=== PATIENT | female | born 1975 | race Caucasian/White ===

== ENCOUNTER 2020-09-16 07:11 | Outpatient (CLI) | payer BC, SELFPAY ==
--- NOTE | ~2020-09-16 | CT_ITS ---
EXAMINATION: CT brain wo con DATE: 09/16/2020 08:05 INDICATION: Headache TECHNIQUE: Computed tomography (CT) of the head was performed without intravenous contrast. Sagittal and coronal reconstructions were performed. The mA was adjusted according to patient size. Iterative reconstruction technique was employed. The dose-length product was 605.33 mGy-cm. COMPARISON: None FINDINGS: No acute intracranial hemorrhage, acute infarction or abnormal extra axial fluid collection. Ventricl es are normal and symmetric. No mass/mass effect. The orbits, paranasal sinuses and mastoid air cells are normal. IMPRESSION: 1. Normal head CT. Reviewed, dictated and finalized at location A. IMPRESSION: 1. Normal head CT.
[2020-09-16 08:57] LABS: Hematocrit 40.9 % (37.0-47.0); Hemoglobin 13.2 g/dL (12.0-15.0); Mean Corpuscular HGB Conc 32.3 g/dl (32-36); Mean Corpuscular Hemoglobin 30.3 pg (26-34); Mean Corpuscular Volume 93.8 fl (80-100); Mean Platelet Volume 10.8 fl (7.4-10.4); Platelet Count Result 252 k/mm3 (150-375); Red Blood Count 4.36 M/mm3 (4.2-5.4); Red Cell Distribution Width 12.9 % (11.5-14.5); White Blood Count 6.3 K/mm3 (4.5-10.0)
[2020-09-16 09:05] LABS: Alanine Aminotransferase 13 U/L (4-35); Albumin Level 4.2 g/dL (3.5-5.1); Alkaline Phosphatase 59 U/L (38-126); Anion Gap 8 mmol/L (8-16); Aspartate Amino Transferase 25 U/L (14-36); Bilirubin,Total 0.3 mg/dL (0.2-1.3); Blood Urea Nitrogen 16 mg/dL (7-17); Calcium 9.4 mg/dL (8.4-10.2); Carbon Dioxide 26 mmol/L (22-30); Chloride 106 mmol/L (98-107); Estimated Glomerular Filt Rate > 60; Glucose 64 mg/dL (65-105); Potassium 4.1 mmol/L (3.4-5.0); Sodium 140 mmol/L (137-145)
[2020-09-16 09:36] LABS: Thyroid Stimulating Hormone 0.995 uIU/mL (0.465-4.680)
[2020-09-16 10:13] LABS: Folic Acid > 20.0 ng/mL (2.76->20)
[2020-09-18 11:34] LABS: Red Blood Cell Folate 623 ng/mL RBC (>280)
== END 2020-09-16 07:12 | disposition home or self-care (01) ==
PROVIDERS: PCP Family Medicine
DX: R50.9 Fever, unspecified (principal)
CPT/HCPCS: 36415; 70450; 80053; 82607; 82746; 82747; 84443; 85027

== ENCOUNTER 2020-09-30 07:06 | Outpatient (CLI) | payer BC, SELFPAY ==
[2020-09-30 07:55] LABS: Cholesterol 214 mg/dL (0-200); HDL Direct 63 mg/dL; Triglycerides 126 mg/dL (<150)
[2020-09-30 08:07] LABS: LDL Cholesterol Direct 109 mg/dL
== END 2020-09-30 07:07 | disposition home or self-care (01) ==
PROVIDERS: PCP Family Medicine; Visit Provider Physician Assistant
DX: Z13.220 Encounter for screening for lipoid disorders (principal)
CPT/HCPCS: 36415; 80061

== ENCOUNTER → 2020-10-21 16:09 | Outpatient (CLI) | payer BC, SELFPAY ==
--- NOTE | ~2020-10-21 | MM_ITS ---
EXAMINATION: MM screening theo BI w kunal HISTORY: Screening TECHNIQUE: Craniocaudal and mediolateral oblique 3-D tomosynthesis images were obtained and synthetic 2-D images were generated. CAD analysis was submitted and interpreted. COMPARISON: 11/11/2015 BREAST PARENCHYMAL COMPOSITION: There are scattered areas of fibroglandular density. FINDINGS: There is no evidence of suspicious mass, calcification, or architectural distortion to sugg est malignancy in either breast. There has been no suspicious interval change. IMPRESSION: 1. No mammographic evidence of malignancy. 2. Recommend routine screening mammography in one year. BI-RADS Category 1: Negative Reviewed, dictated and finalized at location A.
== END ==
PROVIDERS: PCP Family Medicine; Visit Provider Obstetrics & Gynecology
DX: Z12.31 Encounter for screening mammogram for malignant neoplasm of breast (principal)
CPT/HCPCS: 77063; 77067

== ENCOUNTER 2021-08-14 11:11 | Outpatient (CLI) | payer BC, SELFPAY ==
[2021-08-14 11:47] LABS: Basophils Percent Auto 0.4 % (0.2-1.2); Eosinophils Absolute Auto 0.1 K/mm3 (0-0.3); Eosinophils Percent Auto 1.8 % (0-4.4); Hematocrit 39.3 % (37.0-47.0); Hemoglobin 13.8 g/dL (12.0-15.0); Immature Granulocyte Absolute 0.02 K/mm3 (0.00-0.031); Immature Granulocyte Percent A 0.4 % (0-0.5); Lymphocytes Absolute Auto 1.23 K/mm3 (0.9-3.2); Lymphocytes Percent Auto 24.1 % (18.3-44.2); Mean Corpuscular HGB Conc 35.1 g/dl (32-36); Mean Corpuscular Hemoglobin 30.6 pg (26-34); Mean Corpuscular Volume 87.1 fl (80-100); Mean Platelet Volume 10.1 fl (7.4-10.4); Monocytes Absolute Auto 0.4 K/mm3 (0.1-0.6); Monocytes Percent Auto 8.6 % (2.6-8.5); Neutrophils Absolute Auto 3.3 K/mm3 (1.3-6.7); Neutrophils Percent Auto 64.7 % (45.5-73.1); Platelet Count Result 235 k/mm3 (150-375); Red Blood Count 4.51 M/mm3 (4.2-5.4); Red Cell Distribution Width 12.5 % (11.5-14.5); White Blood Count 5.1 K/mm3 (4.5-10.0)
[2021-08-14 14:20] LABS: Alanine Aminotransferase 45 U/L (6-35); Albumin Level 4.8 g/dL (3.5-5.1); Alkaline Phosphatase 80 U/L (38-126); Anion Gap 11 mmol/L (8-16); Aspartate Amino Transferase 41 U/L (14-36); Bilirubin,Total 0.3 mg/dL (0.2-1.3); Blood Urea Nitrogen 13 mg/dL (7-17); Calcium 9.9 mg/dL (8.4-10.2); Carbon Dioxide 20 mmol/L (22-30); Chloride 111 mmol/L (98-107); Cholesterol 233 mg/dL (0-200); Estimated Glomerular Filt Rate > 60; Glucose 101 mg/dL (65-110); HDL Direct 65 mg/dL; Potassium 4.5 mmol/L (3.4-5.0); Sodium 142 mmol/L (137-145); Triglycerides 244 mg/dL (<150)
[2021-08-14 14:37] LABS: LDL Cholesterol Direct 110 mg/dL
== END 2021-08-14 11:12 | disposition home or self-care (01) ==
LOC: ANHLAB 11:12
PROVIDERS: PCP Family Medicine; Visit Provider Family Medicine
DX: F31.9 Bipolar disorder, unspecified (principal); Z13.220 Encounter for screening for lipoid disorders
CPT/HCPCS: 36415; 80053; 80061; 82607; 84443; 85025

== ENCOUNTER → 2022-09-17 12:46 | Outpatient (CLI) | payer BC, SELFPAY ==
--- NOTE | ~2022-09-17 | CT_ITS ---
EXAMINATION: CT sinus wo con DATE: 09/17/2022 13:02 INDICATION: Chronic sinusitis TECHNIQUE: Computed tomography (CT) of the paranasal sinuses was performed without intravenous contra st. The dose-length product was 297.70 mGy-cm. Automated exposure control and iterative reconstructio n technique were employed. COMPARISON: CT dated 09/16/2020 FINDINGS: There are surgical changes consistent with surgical resection of the ostiomeatal units. No significant mucosal thickening of the sinuses. No air-fluid levels. No mucoperiosteal reaction. No na broderick septal deviation. Mastoids are pneumatized. IMPRESSION: 1. No significant sinus disease. Reviewed, dictated and finalized at location L.
== END ==
PROVIDERS: PCP Family Medicine; Visit Provider Otolaryngology
DX: J31.1 Chronic nasopharyngitis (principal)
CPT/HCPCS: 70486

== ENCOUNTER 2023-01-04 16:13 | Outpatient (CLI) | payer BC, SELFPAY ==
[2023-01-04 16:37] LABS: Basophils Percent Auto 0.5 % (0.2-1.2); Eosinophils Absolute Auto 0.2 K/mm3 (0-0.3); Eosinophils Percent Auto 2.7 % (0-4.4); Hematocrit 39.1 % (37.0-47.0); Hemoglobin 12.8 g/dL (12.0-15.0); Immature Granulocyte Absolute 0.02 K/mm3 (0.00-0.031); Immature Granulocyte Percent A 0.2 % (0-0.5); Lymphocytes Absolute Auto 2.84 K/mm3 (0.9-3.2); Lymphocytes Percent Auto 33.1 % (18.3-44.2); Mean Corpuscular HGB Conc 32.7 g/dl (32-36); Mean Corpuscular Hemoglobin 30.8 pg (26-34); Mean Platelet Volume 10.6 fl (7.4-10.4); Monocytes Absolute Auto 0.6 K/mm3 (0.1-0.6); Monocytes Percent Auto 6.9 % (2.6-8.5); Neutrophils Absolute Auto 4.9 K/mm3 (1.3-6.7); Neutrophils Percent Auto 56.6 % (45.5-73.1); Platelet Count Result 252 k/mm3 (150-375); Red Blood Count 4.16 M/mm3 (4.2-5.4); Red Cell Distribution Width 11.9 % (11.5-14.5); White Blood Count 8.6 K/mm3 (4.5-10.0)
[2023-01-04 16:47] LABS: Alanine Aminotransferase 20 U/L (6-35); Albumin Level 4.6 g/dL (3.5-5.1); Alkaline Phosphatase 68 U/L (38-126); Amylase 111 U/L (30-110); Anion Gap 8 mmol/L (8-16); Aspartate Amino Transferase 26 U/L (14-36); Bilirubin,Total 0.4 mg/dL (0.2-1.3); Blood Urea Nitrogen 11 mg/dL (7-17); Calcium 9.7 mg/dL (8.4-10.2); Carbon Dioxide 22 mmol/L (22-30); Chloride 106 mmol/L (98-107); Estimated Glomerular Filt Rate 59; Glucose 99 mg/dL (65-110); Lipase 274 U/L (23-300); Potassium 4.1 mmol/L (3.4-5.0); Sodium 136 mmol/L (137-145)
[2023-01-04 16:57] LABS: Appearance Urine Clear (Clear); Bacteria Urine 1+ /hpf; Bilirubin Urine Negative (Negative); Blood Urine Negative (Negative); Color Urine Yellow (Yellow); Glucose Urine UA Negative (Negative); Ketones Urine Trace mg/dL (Negative); Leukocyte Esterase Ur 1+ LEU/UL (Negative); Nitrate Urine Negative (Negative); Non Pathogenic Casts 0-2; Protein Urine Negative (Negative); Specific Grav Ur 1.023 (1.001-1.035); Squamous Epithelial Cell Urine Few /hpf (Few); pH Urine 7.5 (5.0-9.0)
[2023-01-04 16:59] LABS: Add Urine Microscopic? YES
[2023-01-04 18:37] LABS: Free T4 Free Thyroxine Reflex 1.06 ng/dL (0.78-2.19)
[2023-01-04 19:19] LABS: Total Triiodothyronine (T3) 1.14 NG/ML (0.97-1.69)
== END 2023-01-04 16:14 | disposition home or self-care (01) ==
LOC: ANHLAB 16:15
PROVIDERS: PCP Family Medicine; Visit Provider Physician Assistant
DX: R11.0 Nausea (principal); R53.1 Weakness
CPT/HCPCS: 36415; 80053; 81001; 82150; 83690; 84439; 84443; 84480; 85025; 87086

== ENCOUNTER 2023-07-19 16:06 | Inpatient (IN) | payer BC, SELFPAY ==
[2023-07-19] VITALS (9 sets, daily range): BP systolic 90–105; BP diastolic 48–71; PULSE 60–67; RESP 13–18; TEMP 36.4–36.8; O2SAT 96–100; BMI 25.2
--- NOTE | ~2023-07-19 | XR_ITS ---
EXAMINATION: XR chest 1V portable 07/19/2023 16:38 INDICATION: Overdose PROCEDURE: AP portable chest COMPARISON: No prior studies for comparison. FINDINGS: The lungs are clear. The cardiomediastinal silhouette is within normal limits. There are no pleural effusions. There is no pneumothorax suspected. IMPRESSION: 1: NO ACUTE CARDIOPULMONARY DISEASE. Reviewed, dictated and finalized at location B.
--- NOTE | ~2023-07-19 | CT_ITS ---
Non-contrast Head CT History: Encephalopathy Technique: Axial non-contrast imaging of the brain was performed. Dose reduction technique was used on this scan by utilizing automated exposure control and iterative reconstruction technique. The dose -length product (DLP) was 605.33 mGy-cm. Findings: There is no evidence of intracranial hemorrhage, mass lesion, or acute infarct. Brain par enchyma appears normal. The ventricles and subarachnoid spaces are normal in size. The calvarium ap pears normal. The visualized paranasal sinuses and mastoid air cells are clear. Impression: No significant abnormality seen. Reviewed, dictated and finalized at location . Impression: No significant abnormality seen.
[2023-07-19] MEDS: SODIUM CHLORIDE 0.9% IV 1,000 ML 999 ML IV CONT (16:43)
[2023-07-19 17:13] LABS: Basophils Percent Auto 0.5 % (0.2-1.2); Eosinophils Absolute Auto 0.2 K/mm3 (0-0.3); Eosinophils Percent Auto 2.7 % (0-4.4); Hematocrit 39.7 % (37.0-47.0); Hemoglobin 13.1 g/dL (12.0-15.0); Immature Granulocyte Absolute 0.03 K/mm3 (0.00-0.031); Immature Granulocyte Percent A 0.4 % (0-0.5); Lymphocytes Absolute Auto 1.91 K/mm3 (0.9-3.2); Lymphocytes Percent Auto 24.5 % (18.3-44.2); Mean Corpuscular Hemoglobin 30.5 pg (26-34); Mean Corpuscular Volume 92.3 fl (80-100); Mean Platelet Volume 10.8 fl (7.4-10.4); Monocytes Absolute Auto 0.7 K/mm3 (0.1-0.6); Monocytes Percent Auto 8.9 % (2.6-8.5); Neutrophils Absolute Auto 4.9 K/mm3 (1.3-6.7); Platelet Count Result 287 k/mm3 (150-375); Red Cell Distribution Width 14.4 % (11.5-14.5); White Blood Count 7.8 K/mm3 (4.5-10.0)
--- NOTE | 2023-07-19 17:19 | ED.OVERDOSE ---
HPI - Overdose General Chief Complaint: Overdose Stated Complaint: overdose Time Seen by Provider: 07/19/23 16:20 History of Present Illness HPI Narrative: Pt said he came home and found pt not acting right. Pt drwosy. found empty bottle of clonazepam 1 mg. Pt said she flushed it down the toilet. Rx for 90 filled a month ago. Pt denies SI. Related Data Home Medications Medication Instructions Recorded Confirmed escitalopram oxalate 20 mg tablet 20 mg PO DAILY 07/08/22 07/19/23 (Lexapro) lithium carbonate 300 mg capsule 300 mg PO .COMPLEX 07/08/22 07/19/23 bupropion HCl 300 mg 24 hr tablet, 300 mg PO DAILY 07/19/23 07/19/23 extended release Allergies Allergy/AdvReac Type Severity Reaction Status Date / Time hydrocodone Allergy Unknown unknown Verified 01/04/23 15:37 Penicillins Allergy Unknown unknown Verified 01/04/23 15:37 semaglutide [From Ozempic] AdvReac Severe Nausea and Verified 01/04/23 15:37 Vomiting Review of Systems Review of Systems: All systems reviewed & are unremarkable except as noted in HPI and below PMFSH Past Medical History Medical History Bipolar 1 disorder Generalized anxiety disorder Major depressive disorder Surgical History Surgical History History of endometrial ablation History of hernia repair History of sinus surgery History of tonsillectomy Family History Family History Father Hypertension Sibling Attention deficit disorder Mother Family history of malignant neoplasm of uterus Grandparent Heart disease Anxiety Depression Family history of coronary artery disease Hypertension Family history of elevated blood lipids Pulmonary embolism Other Diabetes mellitus Social History Social History Social History: Smoking status: Never smoker Second hand tobacco smoke exposure: No Smoking end date: 04/05/05 Alcohol intake: former Substance use: never Substance use type: prescription drug Living arrangements: with family Occupation/Education: occupation Gender identity (if verbalized by the patient): Female Sexual Orientation (if Verbalized by the Patient): Straight or Heterosexual Spiritual care concerns: No Exam Const: General: healthy appearing Nutritional Appearance: well nourished Orientation/consciousness: patient oriented x3 Limitations: no limitations Resp: Effort & Inspection: normal respiratory effort Auscultation: clear to auscultation bilaterally Cardio: Rate: regular rate Rhythm: regular rhythm GI: GI Palp: Yes Soft to palpation Auscultation: normal bowel sounds Skin: General skin exam: normal color Rashes: no rashes Wounds: no wounds Neuro: General: patient oriented x3, moves all extremities, no meningeal signs, no focal motor deficits and CN's II-XI intact bilaterally Speech: normal speech Extrem: General: normal to inspection and no clubbing, cyanosis or edema Psych: Mental Status: mental status grossly normal Affect: normal affect Attitude: cooperative Course Vital Signs Vital signs: Vital Signs Temperature 97.6 F 07/19/23 16:16 Pulse Rate 63 07/19/23 16:16 Respiratory Rate 14 07/19/23 16:16 Blood Pressure 104/68 07/19/23 16:16 Pulse Oximetry 100 07/19/23 16:16 Oxygen Delivery Room Air 07/19/23 16:16 Temperature 97.6 F 07/19/23 16:16 Pulse Rate 62 07/19/23 20:31 Respiratory Rate 13 07/19/23 20:31 Blood Pressure 103/68 07/19/23 20:31 Pulse Oximetry 98 07/19/23 20:31 Oxygen Delivery Room Air 07/19/23 16:16 MDM - Overdose MDM Narrative Medical decision making narrative: per pt has had adjustments on psych meds lately and has been very out of it even before today. Pt is stable in
[2023-07-19 17:28] LABS: Alanine Aminotransferase 15 U/L (6-35); Alkaline Phosphatase 60 U/L (38-126); Anion Gap 6 mmol/L (4-12); Aspartate Amino Transferase 26 U/L (14-36); Bilirubin,Total 0.6 mg/dL (0.2-1.3); Blood Urea Nitrogen 8 mg/dL (7-17); Calcium 9.2 mg/dL (8.4-10.2); Carbon Dioxide 20 mmol/L (22-30); Chloride 111 mmol/L (98-107); Estimated CRCL calculation 56 ml/min; Estimated Glomerular Filt Rate > 60; Glucose 85 mg/dL (65-110); Potassium 3.8 mmol/L (3.4-5.0); Sodium 137 mmol/L (137-145)
[2023-07-19 17:31] LABS: Acetaminophen < 10 ug/mL (10-30); Ethanol < 10 mg/dL (<10); Salicylate < 1.0 mg/dL (2-20)
[2023-07-19 17:46] LABS: Appearance Urine Clear (Clear); Bilirubin Urine Negative (Negative); Blood Urine Negative (Negative); Color Urine Dark Yellow (Yellow); Glucose Urine UA Negative (Negative); Ketones Urine Trace mg/dL (Negative); Leukocyte Esterase Ur Negative LEU/UL (Negative); Nitrate Urine Negative (Negative); Protein Urine Negative (Negative); Specific Grav Ur 1.018 (1.001-1.035); pH Urine 6.5 (5.0-9.0)
[2023-07-19 17:53] LABS: Add Urine Microscopic? NO
--- NOTE | 2023-07-19 18:13 | PC.NURSE ---
Spoke with poison control and spoke with TRISTAN Curiel. She states the only thing to watch out for is her respiratory status. will inform MD
[2023-07-19 18:14] LABS: Amphetamine Screen Urine Negative (Negative); Barbiturate Screen Urine Negative (Negative); Benzodiazepines Screen Urine Negative (Negative); Cannabinoid Screen Urine Negative (Negative); Cocaine Screen Urine Negative (Negative); Methadone Screen Urine Negative (Negative); Opiate Screen Urine Negative (Negative); Phencyclidine Screen Urine Negative (Negative)
[2023-07-19 19:01] LABS: Ammonia < 9 umol/L (9-30)
[2023-07-19] MEDS: LACTATED RINGERS 1,000 ML 125 ML IV CONT (21:00)
[2023-07-20] VITALS (9 sets, daily range): BP systolic 92–124; BP diastolic 66–99; PULSE 61–82; RESP 14–22; TEMP 36.2–37.1; O2SAT 95–100
--- NOTE | 2023-07-20 04:03 | ADMGEN ---
This patient, Edwin Loya, was admitted to Intensive Care Unit-9. Patient/family oriented to hospital policies and general routines including ID bracelet, bed and alarms, visiting hours, pain management, procedures, bathroom and other care routines, personal items, smoking policy, room service/diet, and visiting hours. Information on how to activate the Rapid Response Team has been discussed. Patient/Family are encouraged to report perceived risks to care and to ask questions if they do not understand what they are told or what they should do.
[2023-07-20] MEDS: LACTATED RINGERS 1,000 ML 125 ML IV CONT (05:00)
[2023-07-20 07:16] LABS: MRSA (PCR) NOT DETECTED (NOT DETECTE)
[2023-07-20] MEDS: ENOXAPARIN 40 MG/0.4 ML SYRINGE SUB-Q (08:15)
[2023-07-20 08:16] LABS: Basophils Percent Auto 0.5 % (0.2-1.2); Eosinophils Absolute Auto 0.2 K/mm3 (0-0.3); Eosinophils Percent Auto 2.2 % (0-4.4); Hematocrit 40.6 % (37.0-47.0); Hemoglobin 12.9 g/dL (12.0-15.0); Immature Granulocyte Absolute 0.02 K/mm3 (0.00-0.031); Immature Granulocyte Percent A 0.3 % (0-0.5); Lymphocytes Absolute Auto 1.96 K/mm3 (0.9-3.2); Lymphocytes Percent Auto 25.7 % (18.3-44.2); Mean Corpuscular HGB Conc 31.8 g/dl (32-36); Mean Corpuscular Volume 94.4 fl (80-100); Mean Platelet Volume 10.7 fl (7.4-10.4); Monocytes Absolute Auto 0.5 K/mm3 (0.1-0.6); Monocytes Percent Auto 6.3 % (2.6-8.5); Platelet Count Result 252 k/mm3 (150-375); Red Cell Distribution Width 14.1 % (11.5-14.5); White Blood Count 7.6 K/mm3 (4.5-10.0)
--- NOTE | 2023-07-20 08:16 | PM.IMHP ---
H&P: HPI History of Present Illness Date/Time: 07/19/232109 Chief Complaint: Suspected overdose Narrative: 39-year-old female with a past medical history of major depressive disorder with psychosis and bipolar disorder who presented from home via EMS due to suspected overdose on clonazepam. The patient's provides all of the history due to patient's change in mental status. Had a states that the patient has a history of depression and psychosis and he reports that he recently found of the she also carried a diagnosis of bipolar disorder. At the beginning of June the patient began having odd hallucinations. Unfortunately the patient's psychiatrist had recently suddenly . The other psychiatrist in the office was unable to take the patient as a full-time patient but was trying to adjust medications. The reports that her multiple medication adjustments in the patient was started on Seroquel. Initially low-dose Seroquel. However the patient's hallucinations were not improving. And Seroquel was increased. With the increase in Seroquel the patient began having side effects with difficulty with coordination, walking, decreased awareness, decreased appetite. 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 After multiple attempts to go to work and patient having difficulty completing tasks the patient had to resign from her position. The patient was even started on benztropine to help cope with side effects without improvement in condition. The patient had worsened to the point that approximately 4 days ago her Seroquel was discontinued altogether. She was continued on her benztropine. Her states that when the E would tele patient to sit down she would stand up in tried to ambulate unassisted. It gotten to the point that he was giving her her meds and then she would get up and go into the other room and accidentally take other doses of meds a few weeks ago. So for the last several weeks he has actually been hiding her medications and administering them under supervision. He reports that today around 09:00 he he gave her a p.r.n. dose of clonazepam. After he had given her the medication he had went to walk the dogs. When he came back she was sitting on the couch in seemed overly tired which is not been unusual during this whole process. He sister back to bed. She slept most the day with intermittent snoring. He works from home and was monitoring her closely. In the afternoon she had not eaten so he went down to the kitchen to get her something to eat. At that time he found a bottle of clonazepam open on the counter. She had evidently found where he had head the medications. She took fiber 6 tablets of clonazepam that was remaining in the bottle. He thinks that she took it between 9 and 9:30 in the morning. The patient had reported to the ER staff that she had put the medications in the toilet. In the past the patient had evidently reported the several years ago that she had thrown away meds and then later admitted to having taken them. So, he is pretty sure that she has taken them. Patient is currently not a good historian. Her reports that she has been intermittently confused. She actually did not answer any questions while I was in the room. The patient denied suicidal ideation to the ER staff. Review of Systems Review of Systems: ROS unobtainable: Yes unobtainable due to mental status [facility] Past Medical History Medical History (Updated 07/20/23 @ 10:53 by Bonny Garcia DO) Bipolar 1 disorder Generalized anxiety disorder Major depressive disorder Overactive bladder Slow transit constipation Surgical History Surgical History History of endometrial ablation History of hernia repair History of sinus surgery History
[2023-07-20 08:52] LABS: Alanine Aminotransferase 14 U/L (6-35); Albumin Level 3.7 g/dL (3.5-5.1); Alkaline Phosphatase 64 U/L (38-126); Anion Gap 3 mmol/L (4-12); Aspartate Amino Transferase 22 U/L (14-36); Bilirubin,Total 0.6 mg/dL (0.2-1.3); Blood Urea Nitrogen 7 mg/dL (7-17); Calcium 9.1 mg/dL (8.4-10.2); Carbon Dioxide 22 mmol/L (22-30); Chloride 112 mmol/L (98-107); Estimated CRCL calculation 53 ml/min; Estimated Glomerular Filt Rate > 60; Glucose 86 mg/dL (65-110); Magnesium 1.9 mg/dL (1.6-2.3); Phosphorus 2.5 mg/dL (2.5-4.5); Potassium 3.8 mmol/L (3.4-5.0); Sodium 137 mmol/L (137-145)
--- NOTE | 2023-07-20 08:59 | WPDCNINT ---
Assessment and Plan Assessment and plan (1) Encephalopathy acute: Code(s): G93.40 - Encephalopathy, unspecified Status: Acute Assessment and Plan: Encephalopathy could be related to drug overdose -Klonopin overdose, likely 6 pills -patient received 1 L IV fluid the ER -will repeat IV fluid bolus this morning -monitor urine output -check lithium levels as patient is on lithium at home -07/19: CT scan of the brain: With no significant abnormality seen -CBC and BMP are within normal limits -monitor mental status (2) Overdose: Code(s): T50.901A - Poisoning by unspecified drugs, medicaments and biological substances, accidental (unintentional), initial encounter Status: Acute Assessment and Plan: Klonopin overdose -urine tox screen was negative -salicylic, acetaminophen and alcohol levels were negative -maintain suicidal precautions -poison Control has been notified (3) Suicidal behavior: Code(s): R45.89 - Other symptoms and signs involving emotional state Status: Acute Assessment and Plan: As above (4) Bipolar 1 disorder: Code(s): F31.9 - Bipolar disorder, unspecified Status: Acute Assessment and Plan: Will hold all psych medication (5) Generalized anxiety disorder: Code(s): F41.1 - Generalized anxiety disorder Status: Acute Assessment and Plan: Will hold all psych medications Plan DVT prophylaxis: Lovenox Stress ulcer prophylaxis: Not indicated Nutrition: NPO Code Status: Full code Critical Care Time Spent: 49 minutes Due to a high probability of clinically significant, life threatening deterioration, the patient required my highest level of preparedness to intervene emergently and I personally spent this critical care time directly and personally managing the patient. This critical care time included obtaining a history; examining the patient; pulse oximetry; ordering and review of studies; arranging urgent treatment with development of a management plan; evaluation of patient's response to treatment; frequent reassessment; and discussions with other providers. It was exclusive of separately billable procedures and treating other patients and teaching time. Please see Assessment and Plan section and the rest of the note for further information on patient assessment and treatment This dictation may have been done utilizing a voice recognition system. Attempts have been made to correct errors. However, there may be uncorrected grammatical, spelling, and recognitions errors present. [employer] Consult Note Consult date: 07/20/23 Reason for consult: Encephalopathy possible drug overdose/accidental drug overdose HPI: Edwin Loya is a 47 year old female with past medical history of major depressive disorder with psychosis bipolar disorder presented the ED via EMS on 07/19/2023 due to suspected overdose of clonazepam. Medical History obtained from the medical records as patient unable to provide history at this time. According the he gave her Klonopin and went out to walk the dogs and when he came she was sitting the, seemed overly tired. Put her back in bed and she slept most of the day with intermittent snoring. When he went down to the kitchen junito found and empty bottle of clonazepam open on the counter. Them roughly 6 pelvis that were remaining in the bottle. In the past the patient had evidently reported the several years ago that she had thrown away meds and then later admitted to having taken them.? So, he is pretty sure that she has taken them.? CBC any CMP are unremarkable, ammonia levels were within normal limits, UA was unremarkable. Urine drug screen was negative, salicylates, acetaminophen and ethyl alcohol were negative. Was given 1 L IV fluids instead transferred to the ICU for further management. Patient is on suicidal precautions in the ICU Patient seen examined the ICU this morning, opens h
[2023-07-21] VITALS: BP 90/73; PULSE 74; PULSE 84; RESP 21; O2SAT 100
[2023-07-21] MEDS: LACTATED RINGERS 1,000 ML 125 ML IV CONT (01:00)
[2023-07-21 04:00] VITALS: BP 105/74; PULSE 60; RESP 15; TEMP 36.6; O2SAT 100
[2023-07-21 08:00] VITALS: BP 105/74; PULSE 68; PULSE 81; RESP 22; TEMP 36.7; O2SAT 99
--- NOTE | 2023-07-21 10:19 | PM.IMPN ---
Progress Note: A&P Assessment and Plan (1) Encephalopathy acute: Code(s): G93.40 - Encephalopathy, unspecified Status: Acute (2) Overdose: Qualifiers: Encounter type: initial encounter Injury intent: undetermined intent Qualified Code(s): T50.904A - Poisoning by unspecified drugs, medicaments and biological substances, undetermined, initial encounter Code(s): T50.901A - Poisoning by unspecified drugs, medicaments and biological substances, accidental (unintentional), initial encounter Status: Acute (3) Suicidal behavior: Qualifiers: Attempted self-injury: with attempted self-injury Qualified Code(s): T14.91XA - Suicide attempt, initial encounter Code(s): R45.89 - Other symptoms and signs involving emotional state Status: Acute (4) Bipolar 1 disorder: Code(s): F31.9 - Bipolar disorder, unspecified Status: Acute (5) Encephalopathy: Code(s): G93.40 - Encephalopathy, unspecified Status: Acute (6) Generalized anxiety disorder: Code(s): F41.1 - Generalized anxiety disorder Status: Acute Plan 39-year-old female with a past medical history of major depressive disorder with psychosis and bipolar disorder who presented from home via EMS due to suspected overdose on clonazepam.? The patient's provides all of the history due to patient's change in mental status.? Had a states that the patient has a history of depression and psychosis and he reports that he recently found of the she also carried a diagnosis of bipolar disorder.? At the beginning of June the patient began having odd hallucinations.? Unfortunately the patient's psychiatrist had recently suddenly .? The other psychiatrist in the office was unable to take the patient as a full-time patient but was trying to adjust medications.? The reports that her multiple medication adjustments in the patient was started on Seroquel.? Initially low-dose Seroquel.? However the patient's hallucinations were not improving.? And Seroquel was increased.? With the increase in Seroquel the patient began having side effects with difficulty with coordination, walking, decreased awareness, decreased appetite.? 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 After multiple attempts to go to work and patient having difficulty completing tasks the patient had to resign from her position.? The patient was even started on benztropine to help cope with side effects without improvement in condition.? The patient had worsened to the point that approximately 4 days ago her Seroquel was discontinued altogether.? She was continued on her benztropine.? Her states that when the E would tele patient to sit down she would stand up in tried to ambulate unassisted.? It gotten to the point that he was giving her her meds and then she would get up and go into the other room and accidentally take other doses of meds a few weeks ago.? So for the last several weeks he has actually been hiding her medications and administering them under supervision.? He reports that today around 09:00 he he gave her a p.r.n. dose of clonazepam.? After he had given her the medication he had went to walk the dogs.? When he came back she was sitting on the couch in seemed overly tired which is not been unusual during this whole process.? He sister back to bed.? She slept most the day with intermittent snoring.? He works from home and was monitoring her closely.? In the afternoon she had not eaten so he went down to the kitchen to get her something to eat.? At that time he found a bottle of clonazepam open on the counter.? She had evidently found where he had head the medications.? She took fiber 6 tablets of clonazepam that was remaining in the bottle.? He thinks that she took it between 9 and 9:30 in the morning.? The patient had re
[2023-07-21 12:00] VITALS: BP 116/74; PULSE 63; PULSE 65; RESP 16; TEMP 36.6; TEMP 36.7; O2SAT 100; O2SAT 99
--- NOTE | 2023-07-21 12:03 | PC.NURSE ---
Dr. Johnston here and states pt is medically state for crises to be called
[2023-07-21 14:06] LABS: Influenza A QL RT-PCR Negative (Negative); Influenza B QL RT-PCR Negative (Negative); RSV RNA, RT-PCR Negative (Negative); SARS-CoV-2 RNA PCR Negative (Negative)
[2023-07-21 16:00] VITALS: BP 109/74; PULSE 73; RESP 18; TEMP 36.8; O2SAT 100
[2023-07-21] MEDS: ONDANSETRON HCL ODT 4 MG TABLET PO (20:07)
[2023-07-22] VITALS: BP 107/78; PULSE 64; RESP 12; O2SAT 100
[2023-07-22 08:00] VITALS: BP 113/72; PULSE 63; RESP 16; TEMP 36.6; O2SAT 98
--- NOTE | 2023-07-22 10:06 | P.PNIM_ITS ---
Progress Note: A&P Assessment and Plan (1) Encephalopathy acute: Code(s): G93.40 - Encephalopathy, unspecified Status: Acute (2) Overdose: Qualifiers: Encounter type: initial encounter Injury intent: undetermined intent Qualified Code(s): T50.904A - Poisoning by unspecified drugs, medicaments and biological substances, undetermined, initial encounter Code(s): T50.901A - Poisoning by unspecified drugs, medicaments and biological substances, accidental (unintentional), initial encounter Status: Acute (3) Suicidal behavior: Qualifiers: Attempted self-injury: with attempted self-injury Qualified Code(s): T14.91XA - Suicide attempt, initial encounter Code(s): R45.89 - Other symptoms and signs involving emotional state Status: Acute (4) Bipolar 1 disorder: Code(s): F31.9 - Bipolar disorder, unspecified Status: Acute (5) Encephalopathy: Code(s): G93.40 - Encephalopathy, unspecified Status: Acute (6) Generalized anxiety disorder: Code(s): F41.1 - Generalized anxiety disorder Status: Acute Plan 39-year-old female with a past medical history of major depressive disorder with psychosis and bipolar disorder who presented from home via EMS due to suspected overdose on clonazepam.? The patient's provides all of the history due to patient's change in mental status.? Had a states that the patient has a history of depression and psychosis and he reports that he recently found of the she also carried a diagnosis of bipolar disorder.? At the beginning of June the patient began having odd hallucinations.? Unfortunately the patient's psychiatrist had recently suddenly .? The other psychiatrist in the office was unable to take the patient as a full-time patient but was trying to adjust medications.? The reports that her multiple medication adjustments in the patient was started on Seroquel.? Initially low-dose Seroquel.? However the patient's hallucinations were not improving.? And Seroquel was increased.? With the increase in Seroquel the patient began having side effects with difficulty with coordination, walking, decreased awareness, decreased appetite.? 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 After multiple attempts to go to work and patient having difficulty completing tasks the patient had to resign from her position.? The patient was even started on benztropine to help cope with side effects without improvement in condition.? The patient had worsened to the point that approximately 4 days ago her Seroquel was discontinued altogether.? She was continued on her benztropine.? Her states that when the E would tele patient to sit down she would stand up in tried to ambulate unassisted.? It gotten to the point that he was giving her her meds and then she would get up and go into the other room and accidentally take other doses of meds a few weeks ago.? So for the last several weeks he has actually been hiding her medications and administering them under supervision.? He reports that today around 09:00 he he gave her a p.r.n. dose of clonazepam.? After he had given her the medication he had went to walk the dogs.? When he came back she was sitting on the couch in seemed overly tired which is not been unusual during this whole process.? He sister back to bed.? She slept most the day with intermittent snoring.? He works from home and was monitoring her closely.? In the afternoon she had not eaten so he went down to the kitchen to get her something to eat.? At that time he found a bottle of clonaz
--- NOTE | 2023-07-22 10:08 | PM.DS ---
DS: Admitting Diagnosis Discharge Date 07/22/23 Admitting Diagnosis (1) Encephalopathy acute: ?Code(s): G93.40 - Encephalopathy, unspecified ?Status:?Acute (2) Overdose: ?Qualifiers: ?Encounter type:?initial encounter??Injury intent:?undetermined intent? Qualified Code(s):?T50.904A - Poisoning by unspecified drugs, medicaments and biological substances, undetermined, initial encounter ?Code(s): T50.901A - Poisoning by unspecified drugs, medicaments and biological substances, accidental (unintentional), initial encounter ?Status:?Acute (3) Suicidal behavior: ?Qualifiers: ?Attempted self-injury:?with attempted self-injury? Qualified Code(s):?T14.91XA - Suicide attempt, initial encounter ?Code(s): R45.89 - Other symptoms and signs involving emotional state ?Status:?Acute (4) Bipolar 1 disorder: ?Code(s): F31.9 - Bipolar disorder, unspecified ?Status:?Acute (5) Encephalopathy: ?Code(s): G93.40 - Encephalopathy, unspecified ?Status:?Acute (6) Generalized anxiety disorder: ?Code(s): F41.1 - Generalized anxiety disorder ?Status:?Acute DS: Discharge Diagnosis Discharge Diagnosis (1) Encephalopathy acute: Code(s): G93.40 - Encephalopathy, unspecified Status: Acute (2) Overdose: Qualifiers: Encounter type: initial encounter Injury intent: undetermined intent Qualified Code(s): T50.904A - Poisoning by unspecified drugs, medicaments and biological substances, undetermined, initial encounter Code(s): T50.901A - Poisoning by unspecified drugs, medicaments and biological substances, accidental (unintentional), initial encounter Status: Acute (3) Suicidal behavior: Qualifiers: Attempted self-injury: with attempted self-injury Qualified Code(s): T14.91XA - Suicide attempt, initial encounter Code(s): R45.89 - Other symptoms and signs involving emotional state Status: Acute (4) Bipolar 1 disorder: Code(s): F31.9 - Bipolar disorder, unspecified Status: Acute (5) Encephalopathy: Code(s): G93.40 - Encephalopathy, unspecified Status: Acute (6) Generalized anxiety disorder: Code(s): F41.1 - Generalized anxiety disorder Status: Acute DS: Summary Hospital Course Hospital Course: 39-year-old female with a past medical history of major depressive disorder with psychosis and bipolar disorder who presented from home via EMS due to suspected overdose on clonazepam.? The patient's provides all of the history due to patient's change in mental status.? Had a states that the patient has a history of depression and psychosis and he reports that he recently found of the she also carried a diagnosis of bipolar disorder.? At the beginning of June the patient began having odd hallucinations.? Unfortunately the patient's psychiatrist had recently suddenly .? The other psychiatrist in the office was unable to take the patient as a full-time patient but was trying to adjust medications.? The reports that her multiple medication adjustments in the patient was started on Seroquel.? Initially low-dose Seroquel.? However the patient's hallucinations were not improving.? And Seroquel was increased.? With the increase in Seroquel the patient began having side effects with difficulty with coordination, walking, decreased awareness, decreased appetite.? 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 After multiple attempts to go to work and patient having difficulty completing tasks the patient had to resign from her position.? The patient was even started on benztropine to help cope with side effects without improvement in condition.? The patient had worsened to the point that approximately 4 days ago her Seroquel was discontinued altogether.? She was cont
== END 2023-07-22 10:27 | disposition home health service (06) | DRG 917 ==
LOC: ANHED 18:16 → ANHICU 20:58
PROVIDERS: Internal Medicine; Admitting Provider General Practice; Emergency Provider Emergency Medicine; PCP Family Medicine; Visit Provider Hospitalist
DX: T42.4X1A Poisoning by benzodiazepines, accidental (unintentional), initial encounter (principal); G92.8 Other toxic encephalopathy; F31.9 Bipolar disorder, unspecified; F41.1 Generalized anxiety disorder; Z88.0 Allergy status to penicillin
CPT/HCPCS: 36415; 70450; 71045; 80053; 80178; 80307; 81003; 82140; 83735; 84100; 84443; 85025; 87637; 87641; 96360; 97162; 99285; A9270; J1650; J7030; J7120

== ENCOUNTER 2023-09-24 14:58 | Outpatient (CLI) | payer BC, SELFPAY ==
--- NOTE | ~2023-09-24 | MM_ITS ---
EXAMINATION: MM screening [facility] BI w [place] HISTORY: Screening TECHNIQUE: Craniocaudal and mediolateral oblique 3-D tomosynthesis images were obtained and synthetic 2-D images were generated. CAD analysis was submitted and interpreted. COMPARISON: Comparison to multiple prior studies sequentially, with oldest reviewed study dated 11/2015. BREAST PARENCHYMAL COMPOSITION: There are scattered areas of fibroglandular density. FINDINGS: There is no evidence of suspicious mass, calcification, or architectural distortion to sugg est malignancy in either breast. There has been no suspicious interval change. IMPRESSION: 1. No mammographic evidence of malignancy. 2. Recommend routine screening mammography in one year. BI-RADS Category 1: Negative Reviewed, dictated and finalized at location B.
== END 2023-09-24 14:59 ==
LOC: MICIMG 14:59
PROVIDERS: PCP Obstetrics & Gynecology; Visit Provider Physician Assistant
DX: Z12.31 Encounter for screening mammogram for malignant neoplasm of breast (principal)
CPT/HCPCS: 77063; 77067